=== PATIENT | female | born 1965 | race Caucasian/White ===

== ENCOUNTER 2017-10-06 13:48 | Emergency (ER) | payer OTHER ==
[~2017-10-06] VITALS: Ht 177.8 cm; Wt 111.4 kg
[~2017-10-06 13:48] MED LIST: ATARAX,VISTARIL25 MG PO; BENADRYL25 MG PO; CELECOXIB200 MG PO; DOK PLUS TABLE1 EACH PO; ENOXAPARIN120 MG/0.8; FIBER SELECT G1 EACH PO; FLINTSTONES M100 MCG PO; GABAPENTIN300 MG PO; IMODIUM MS REL1 EACH PO; IRON325 MG PO; LIDOCAINE700 MG TD; MILK OF MAGNESI10 ML PO; NEURONTIN300 MG PO; NORCO 5/3251 TABLET PO; OXYCODONE HCL5 MG; OXYCODONE HCL5 MG PO; OXYCONTIN10 MG PO; WARFARIN SODIUM5 MG; XARELTO10 MG PO; ZOFRAN4 MG PO
[2017-10-06] MEDS ORDERED: VALIUM5 MG PO (15:46)
[2017-10-06] MEDS ORDERED: MOTRIN800 MG PO (15:46)
[2017-10-06] MEDS ORDERED: LIDODERM 5% P1 PATCH TD (15:46)
[2017-10-06] MEDS ORDERED: NORCO 7.5/321 TABLET PO (15:46)
[2017-10-06 16:13] VITALS: BP 113/62
== END 2017-10-06 16:14 | disposition home or self-care (01) ==
LOC: EME 13:48
DX: S39.012A Strain of muscle, fascia and tendon of lower back, initial encounter (principal); M54.41 Lumbago with sciatica, right side; M54.42 Lumbago with sciatica, left side; X50.1XXA Overexertion from prolonged static or awkward postures, initial encounter; Y99.0 Civilian activity done for income or pay; Z86.711 Personal history of pulmonary embolism; Z86.718 Personal history of other venous thrombosis and embolism; Z87.891 Personal history of nicotine dependence
CPT/HCPCS: 99281; 99285; J3010

== ENCOUNTER 2018-04-01 06:12 | Day surgery (SDC) | payer OTHER ==
[~2018-04-01] VITALS: Ht 175.3 cm; Wt 113.4 kg
[~2018-04-01 06:12] MED LIST changes: +ATIVAN0.5 MG PO; +LEXAPRO10 MG PO; +LIDODERM 5% P1 PATCH TD; +MOTRIN800 MG PO; +NORCO 7.5/321 TABLET PO; +SYNTHROID25 MCG PO; +TOPAMAX50 MG PO; +VALIUM5 MG PO
[2018-04-01 06:36] VITALS: BP 116/58
[2018-04-01] MEDS ORDERED: OXYCODONE HCL5 MG PO (09:18)
[2018-04-01 09:50] VITALS: BP 113/66
== END 2018-04-01 10:15 | disposition home or self-care (01) ==
LOC: SDC 06:12
PROC: 0HBU0ZX Excision of Left Breast, Open Approach, Diagnostic (ICD-10-PCS; principal; 2018-04-01)
DX: N61.1 Abscess of the breast and nipple (principal); N60.82 Other benign mammary dysplasias of left breast; E03.9 Hypothyroidism, unspecified; Z80.3 Family history of malignant neoplasm of breast; Z87.891 Personal history of nicotine dependence; Z88.0 Allergy status to penicillin
CPT/HCPCS: J1100; J1580; J2405; J3010; J7050; S0020; S0030